=== PATIENT | male | born 1965 | race Hispanic/Latino ===

== ENCOUNTER 2019-10-16 17:15 | Observation (INO) | payer OTHER ==
[~2019-10-16] VITALS: Ht 180.3 cm; Wt 110.9 kg
--- OUTSIDE RECORDS SUMMARY | 2019-10-16 17:18 | XMS REPORT | Clinical Summary ---
Author Author [facility] Organization [facility] Address Unknown Phone Unavailable Care Team Providers Care Senior Procurement Specialist Name Role Phone Daren Dan MD PCP Allergies No Known Allergies Medications End Date Status Medication Sig Dispensed Refills Start Date Active amlodipine-benazepril Take 1 0 (LOTREL 5-10) 5-10 mg per capsule by capsule mouth daily. Active allopurinol (ZYLOPRIM) Take 100 mg 0 100 MG tablet by mouth 2 (two) times a day. Active Problems Not on file Family History Medical History Relation Name Comments Arthritis Father Hypertension Father Hypertension Mother Relation Name Status Comments Father Alive Mother Alive Social History Date Tobacco Use Types Packs/Day Years Used Former Smoker Cigarettes Smokeless Tobacco: Never Used Comments: >16 yrs Drinks/Week oz/Week Comments Alcohol Use Occassionally Yes Sex Assigned at Date Recorded Not on file Industry Job Start Date Occupation Not on file Not on file Not on file Travel End Travel History Travel Start No recent travel history available. Last Filed Vital Signs Not on file Plan of Treatment Health Maintenance Due Date Last Done Comments COLONOSCOPY SCREENING 09/25/2017 SHINGLES VACCINES (#1) 09/25/2017 INFLUENZA VACCINE 12/26/2019 Results Not on fileafter 10/15/2018 Insurance Type Payer Benefit Subscriber ID Effective Phone Address Plan / Dates Group HMO/PPO [facility] xxxxxxxxx 2017-P THCARE resent CHOICE/CHO ICE + Advance Directives For more information, please contact: [phone] Patient Carbonation Tester Explanation Type Date Recorded Advance Directives, 03/03/2018 4:17 PM Living Will and Medical Power of Director Of Physiotherapy Services
[2019-10-16] MEDS ORDERED: CEFEPIME 1GM/NS 0.9% 50 ML 50 ML IV STA (17:32)
[2019-10-16] MEDS ORDERED: SODIUM CHLORIDE 0.9% 1000ML 1,000 ML IV STA ×2 (17:32→19:47)
--- NOTE | 2019-10-16 18:35 | Diagnostic Imaging Report ---
Examination: Single AP view of the chest. COMPARISON: None. INDICATION: Tachycardia, chest pain IMPRESSION: 1. Lines and Tubes: None 2. Lungs are grossly clear. No consolidation or effusion. 3. Cardiomediastinal silhouette is normal. Pulmonary vasculature is normal. 4. No acute bony abnormalities. Signed by: Dr. Paulino Carlton M.D. on 10/16/2019 6:32 PM
[2019-10-16 18:38] LABS: BASOPHILS # (AUTO) 0.1 (0.0-0.1); BASOPHILS % 0.3 % (0.0-1.0); EOSINOPHILS % 0.1 % (0.0-6.0); HEMATOCRIT 36.9 % (38.2-49.6); HEMOGLOBIN 11.7 g/dL (14.0-18.0); LYMPHOCYTES # (AUTO) 1.1 (1.0-3.2); LYMPHOCYTES % 5.7 % (18.0-39.1); MEAN CORPUSCULAR HEMOGLOBIN 25.9 pg (28-32); MEAN CORPUSCULAR HGB CONC 31.7 g/dL (31-35); MEAN CORPUSCULAR VOLUME 81.8 fL (81-99); MONOCYTES # (AUTO) 1.8 (0.2-0.8); MONOCYTES % 9.5 % (4.4-11.3); NEUTROPHILS # (AUTO) 15.3 (2.1-6.9); NEUTROPHILS % 83.4 % (38.7-80.0); PLATELET COUNT 294 x10e3/uL (140-360); RED BLOOD COUNT 4.51 x10e6/uL (4.3-5.7); RED CELL DISTRIBUTION WIDTH 14.5 % (11.7-14.4)
[2019-10-16] MEDS ORDERED: ACETAMINOPHEN 325 MG TAB ONE (18:44)
--- NOTE | 2019-10-16 18:54 | Emergency Department Note ---
History of Present Illnes History of Present Illness Chief Complaint: Chest Pain History of Present Illness This is a 54 year old male arrived to the ED with complaints of lower l eg pain, transferred from [facility] for tachycardia- pt with a prior h/o arthrocentesis. Chief Complaint Comment PATIENT IN FROM HOME WITH COMPLAINTS OF LEFT KNEE PAIN AND SWELLING X 4 WEEKS; STATES WAS SEEN AT [facility] TODAY AND SENT OVER FOR HIGH HEART RATE; PATIENT RATES PAIN 8/10, TACHYCARDIC IN TRIAGE, APPEARS IN NO DISTRESS, AMBULATORY WITH ASSISTANCE SINCE PAIN STARTED Historian: Patient Arrival Mode: Car Onset (how long ago): month(s) Severity: mild Duration (how long): day(s) Timing of current episode: constant Progression: worsening Chronicity: new Context: recent illness, recent surgery, recent immobilization Relieving factors: none, immobilization Exacerbating factors: movement Treatments prior to arrival: none Past Medical/Family History Physician Review I have reviewed the patient's past medical and family history. Any updates have been documented here. Past Medical History Recent Fever: No Clinical Suspicion of Infectio: No New/Unexplained Change in Ment: No Past Medical History: Hypertension, Chronic Kidney Disease Other Medical History: GOUT PRE-DIABETIC Other Surgery: RIGHT ELBOW CYST REMOVAL Other Last Tetanus: UNKNOWN Review of Systems Review of Systems Constitutional: no symptoms EENTM: no symptoms Cardiovascular: no symptoms Respiratory: no symptoms Gastrointestinal: no symptoms Genitourinary: no symptoms Musculoskeletal: as per HPI, joint pain, joint swelling Neurological: no symptoms Psychological: no symptoms Endocrine: no symptoms Hematological/Lymphatic: no symptoms Review of other systems All other systems reviewed and negative. Physical Exam Related Data Allergies: Coded Allergies: No Known Allergies (Unverified , 10/16/19) Triage Vital Signs Vital Signs Date Time Temp Pulse Resp B/P (MAP) Pulse Ox O2 Delivery O2 Flow Rate FiO2 10/16/19 17:30 99.6 145 20 141/80 98 Vital signs reviewed: Yes Physical Exam CONSTITUTIONAL Constitutional: well-developed, well-nourished HENT HENT: normocephalic, atraumatic, oropharynx clear/moist, nose normal HENT L/R: left ext ear normal, right ext ear normal EYES Eyes: PERRL, conjunctivae normal NECK Neck: ROM normal PULMONARY Pulmonary: effort normal, breath sounds normal CARDIOVASCULAR Cardiovascular: regular rhythm, capillary refill normal, normal rate, tachycardia, LLE edema, RLE edema GASTROINTESTINAL Abdominal: soft, nontender, bowel sounds normal GENITOURINARY Genitourinary: exam deferred SKIN Skin: warm, dry MUSCULOSKELETAL Musculoskeletal: ROM normal, tenderness, swelling NEUROLOGICAL Neurological: alert, oriented x 3, no gross motor or sensory deficits PSYCHOLOGICAL Psychological: mood/affect normal, judgement normal Critical Care Time Subsequent provider I assumed direction of critical care for this patient from another provider of my specialty. Assessment & Plan Assessment & Plan Final Impression: (1) Severe sepsis Assessment & Plan cbc, cmp blood culture, lactic antibiotics Last Vital Signs Date Time Temp Pulse Resp B/P (MAP) Pulse Ox O2 Delivery O2 Flow Rate FiO2 10/16/19 17:30 99.6 145 20 141/80 98 Medications in the ED Sodium Chloride 1,000 ml @ 0 mls/hr Q0M STAT IV ; Start 10/16/19 at 17:32; Stop 10/16/19 at 17:35; Status DC Cefepime HCl 50 ml @ 100 mls/hr ONCE STAT IV ; Start 10/16/19 at 17:32; Stop 10/16/19 at 18:01; Status DC Physician Attestation Provider Attestation Sign out given to JYOTI Brown, October 16, 2019 18:54
[2019-10-16] MEDS ORDERED: VANCOMYCIN 1GM/NS 250 ML 250 ML ONE (18:55)
[2019-10-16 18:56] LABS: ALBUMIN 3.4 g/dL (3.5-5.0); ALBUMIN/GLOBULIN RATIO 0.7 (0.8-2.0); ANION GAP 17.8 mmol/L (8-16); CALCIUM 10.2 mg/dL (8.4-10.2); CREATININE, SERUM 3.17 mg/dL (0.72-1.25); POTASSIUM 4.8 mmol/L (3.5-5.1)
--- NOTE | 2019-10-16 19:05 | Diagnostic Imaging Report ---
Exam: Left Knee Series. History: Left knee pain and swelling for 4 weeks Comparison: None. Findings: 3 views of the left knee. There is mildly decreased bone mineralization. No acute, displaced fracture or dislocation. Moderate tricompartmental degenerative joint disease, worse at the patellofemoral compartment, with presence of marginal osteophytes and joint space narrowing. No aggressive lytic or suspicious sclerotic lesions. No abnormal soft tissue calcification or mass. Trace suprapatellar effusion. Impression: 1. No acute abnormalities. 2. Moderate tricompartmental degenerative joint disease. Trace suprapatellar effusion. Signed by: Dr. Paulino Carlton M.D. on 10/16/2019 7:02 PM
[2019-10-16] MEDS ORDERED: VANCOMYCIN 1GM/NS 250 ML 250 ML IV ONE (19:15)
[2019-10-16] MEDS ORDERED: ALLOPURINOL100 MG (19:52)
[2019-10-16] MEDS ORDERED: ULTRAM 50MG50 MG (19:52)
[2019-10-16] MEDS ORDERED: AMLODIPINE-BEN1 EAC2 (19:52)
[2019-10-16] MEDS ORDERED: ASPIRIN 81 MG CHEW TAB PO ONE (20:00)
--- OUTSIDE RECORDS SUMMARY | 2019-10-16 21:13 | XMS REPORT | Clinical Summary ---
Author Author [facility] Organization [facility] Address Unknown Phone Unavailable Care Team Providers Care Data Integration Architect Name Role Phone Daren Dan MD PCP [...] Phone Address Plan / Dates Group HMO/PPO [facility] xxxxxxxxx 2017-P THCARE resent CHOICE/CHO ICE + Advance Directives For more information, please contact: [phone] Patient Nurse Explanation Type Date Recorded Advance Directives, 03/03/2018 4:17 PM Living Will and Medical Power of Outcome Analyst
--- OUTSIDE RECORDS SUMMARY | 2019-10-16 21:13 | XMS REPORT ---
Author Author [facility] t Organization [facility] Address [address] [place] [address] Phone Unavailable Care Team Providers Care Electro Mechanical Designer Name Role Phone Sy KRUSE, Gigi Mercedes PCP Markus MELLO Attphymarkus Unavailable Problems This patient has no known problems. Allergies, Adverse Reactions, Alerts This patient has no known allergies or adverse reactions. Family History Family Member Diagnosis Comments Start Date Stop Date Source Natural father Arthritis [facility] thodist Natural father Hypertension Clayton Fernandez Natural mother Hypertension Clayton Fernandez Social History Social Habit Start Date Stop Date Quantity Comments Source History of tobacco use Cigarette Smoker Clayton Fernandez Sex Assigned At Shreyahi burciaga Rebecca Alcohol intake 2018-03-12 00:00:00 2018-03-12 00:00:00 Current drinker of alcohol (finding) Clayotn Fernandez Tobacco Comment 2018-03-04 00:00:00 2018-03-04 00:00:00 >16 yrs Clayton Fernandez Alcohol Comment 2018-03-04 00:00:00 2018-03-04 00:00:00 Occassionally Clayton Fernandez Smoking Status Start Date Stop Date Source Former smoker 2018-03-12 00:00:00 2018-03-12 00:00:00 Clayton Fernandez Medications Ordered Medication Name Filled Medication Name Start Date Stop Da te Current Medication? Ordering Clinician Indication Dosage Frequency Signature (SIG) Comments Components Source amlodipine-benazepril (LOTREL 5-10) 5-10 mg per capsule 2018-03-06 18:23:33 Yes 1{capsule} QD Take 1 capsule by mouth daily. Clayton Fernandez allopurinol (ZYLOPRIM) 100 MG tablet 2018-03-06 18:23:33 Ye s 100mg Q.5D Take 100 mg by mouth 2 (two) times a day. Clayton Fernandez Procedures This patient has no known procedures. Plan of Care Planned Activity Planned Date Details Comments Source Future Scheduled Test 2019-12-26 00:00:00 INFLUENZA VACCINE [code = INFLUENZA VACCINE] [facility] Future Scheduled Test 2017-09-25 00:00:00 COLONOSCOPY SCREEN ING [code = COLONOSCOPY SCREENING] [facility] Future Scheduled Test 2017-09-25 00:00:00 SHINGLES VACCINES (#1) [code = SHINGLES VACCINES (#1)] [facility] Results Test Description Test Time Test Comments Results Result Comments Source KNEE LEFT THREE VIEWS 2019-10-16 18:59:00 [facility] [address] [address] Patient Name: GLORIA YBARRA MR #: [id number] : 1965 Age/Sex: 54/M Req #: [id number] Adm Physician: Ordered by: JYOTI MELLO DO Report #: [id number] Location: ER Room/Bed: Procedure: [id number] DX/KNEE LEFT THREE VIEWS Exam Date: 10/16/19 Exam Time: 1814 REPORT STATUS: Signed Exam: Left Knee Series. History: Left knee pain and swelling for 4 weeks Comparison: None. Findings: 3 views of the left knee. There is mildly decreased bone mineralization. No acute, displaced fracture or dislocation. Moderate tricompartmental degenerative joint disease, worse at the patellofemoral compartment, with presence of marginal osteophytes and joint space narrowing. No aggressive lytic or suspicious sclerotic lesions. No abnormal soft tissue calcification or mass. Trace suprapatellar effusion. Impression: 1. No acute abnormalities. 2. Moderate tricompartmental degenerative joint disease. Trace suprapatellar effusion. Signed by: Dr. Olayinka Carlton M.D. on 10/16/2019 7:02 PM Dictated By: OLAYINKA CARLTON MD 01 Transcribed By: JENNIFER on 10/16/191901 COPY TO: JYOTI MELLO DO CHEST SINGLE (PORTABLE) 2019-10-16 18:31:00 [address] [address] Patient Name: GLORIA YBARRA MR #: [id number] : 1965 Age/Sex: 54/M Req #: [id number] Adm Physician: Ordered by: JYOTI MELLO DO Report #: [id number] Location: ER Room/Bed: Procedure: [id number] DX/CHEST SINGLE (PORTABLE) Exam Date: 10/16/19 Exam Time: 1814 REPORT STATUS: Signed Examination: Single AP view of the chest. COMPARISON: None. INDICATION: Tachycardia, chest pain IMPRESSION: 1. Lines and Tubes: None 2. Lungs are grossly clear. No consolidation or effusion. 3. Cardiomediastinal silhouette is normal. Pulmonary vasculature is normal. 4. No acute bony abnormalities. Signed by: Dr. Olayinka Carlton M.D. on 10/16/2019 6:32 PM Dictated By: OLAYINKA CARLTON MD 31 Transcribed By: JENNIFER on 10/16/191831 COPY TO: JYOTI MELLO DO
--- NOTE | 2019-10-16 23:14 | NUR ---
PATIENT ARRIVED VIA STRETCHER FROM ER. RECEIVED REPORT FROM JERRI MENESES NURSE. PATIENT IS A&OX4 AND AMBULATES. CALL LIGHT WITHIN REACH. PATIENT IN NO PAIN OR DISTRESS.
[2019-10-16 23:20] VITALS: BP 125/84
[2019-10-17] VITALS (7 sets, daily range): BP systolic 125–153; BP diastolic 80–88
[2019-10-17 05:55] LABS: BASOPHILS % 0.4 % (0.0-1.0); EOSINOPHILS # (AUTO) 0.1 (0.0-0.4); HEMATOCRIT 35.2 % (38.2-49.6); HEMOGLOBIN 10.7 g/dL (14.0-18.0); LYMPHOCYTES % 10.4 % (18.0-39.1); MEAN CORPUSCULAR HEMOGLOBIN 26.1 pg (28-32); MEAN CORPUSCULAR HGB CONC 30.4 g/dL (31-35); MEAN CORPUSCULAR VOLUME 85.9 fL (81-99); MONOCYTES # (AUTO) 1.4 (0.2-0.8); MONOCYTES % 14.6 % (4.4-11.3); NEUTROPHILS % 72.8 % (38.7-80.0); PLATELET COUNT 203 x10e3/uL (140-360); RED CELL DISTRIBUTION WIDTH 14.4 % (11.7-14.4)
[2019-10-17 06:35] LABS: ALBUMIN 2.8 g/dL (3.5-5.0); ALBUMIN/GLOBULIN RATIO 0.7 (0.8-2.0); ANION GAP 16.5 mmol/L (8-16); CALCIUM 9.5 mg/dL (8.4-10.2); CREATININE, SERUM 2.84 mg/dL (0.72-1.25); POTASSIUM 4.5 mmol/L (3.5-5.1)
--- NOTE | 2019-10-17 07:18 | NUR ---
GAVE BEDSIDE SHIFT REPORT TO ONCOMING NURSE. CALL LIGHT WITHIN REACH. PATIENT IN BED.
[2019-10-17] MEDS: SODIUM CHLORIDE 0.9% 1000ML 1,000 ML IV SCH ×4 (09:00→18:02)
--- NOTE | 2019-10-17 10:05 | Diagnostic Imaging Report ---
Exam: Bilateral Knee Series. History: Bilateral knee pain Comparison: Left knee 3 views 10/16/2019 Findings: Right: 3 views of the right knee. There is mildly decreased bone mineralization. Negative for acute, displaced fracture or dislocation. Moderate to marked tricompartmental degenerative joint disease, worse at the patellofemoral compartment, with marginal osteophytes and joint space narrowing. No abnormal soft tissue calcification or mass. Trace suprapatellar effusion.. Left: No interval change since films performed 10/16/2019 Impression: 1. Tricompartmental degenerative joint disease, as described. Trace bilateral suprapatellar effusions. Signed by: Dr. Paulino Carlton M.D. on 10/17/2019 10:01 AM
[2019-10-17] MEDS ORDERED: MORPHINE SULFATE INJ 4 MG/ML INJ 1ML IV PRN (12:45)
[2019-10-17] MEDS ORDERED: ACETAMINOPHEN 325 MG TAB PO PRN (12:45)
[2019-10-17] MEDS ORDERED: METHYLPREDNISOLONE SOD SUCC 40 MG/ML VIAL 1ML IV ONE (13:30)
[2019-10-17] MEDS: CEFTRIAXONE SOD 1 GM/NS 50 ML 50 ML IV SCH (13:32)
--- NOTE | 2019-10-17 15:36 | NUR ---
ORTHOPEDIC CONSULTATION 54 year old community ambulator without assistive device presents to the ED with complaints of bilateral knee pain over the past week that has progressively worsened. He had a corticosteroid injection by Dr. Reeder a month ago. Denies any fevers or chills, no numbness, paresthesias or loss of distal motor function. Patient has pain throughout his upper and lower extremity. Has a history of gout with frequent attacks. PMdHx: Bilateral Knee OA, Gout, HTN Allergies: NKDA Meds: See reconciliation FamHx: Non-contributory SurgHx: Gouty Tophi removal, Appendectomy VS T 97.8 HR 74 RR 20 BP 153/88 O2 99% Gen: AAOx3, NAD Bilateral Knees: Genu valgus, crepitus with ROM ROM 10-80 with crepitus, no pain with PROM Small effusion Negative Varus/Valgus Negative Anterior & Posterior Drawer Xrays: Severe Bilateral Total Knee Osteoarthritisf WBC 9.59 Hgb 10.7 Hct 35.2 ESR 97 Glucose 387 Blood Cx: Pending 54 year old Male with Bilateral Knee Osteoarthritis Low likelihood of septic arthritis Discussed care with patient and expressed to him that he could have his knee aspirated and even provided a corticosteroid injection. He plans to have a total knee arthroplasty performed in the next few months and would not like an aspiration or injection NSAIDS DVT Prophylaxis PT - WBAT If patient's condition or symptoms worsen, please contact PRN No acute orthopedic intervention required at this time. May follow up as an outpatient. Molly Carmichael DO [facility]
[2019-10-17] MEDS: METOPROLOL TARTRATE 25 MG TAB PO SCH (17:06)
--- NOTE | 2019-10-17 17:11 | NUR ---
RT notified of EKG Order
--- NOTE | 2019-10-17 18:43 | NUR ---
dictation [id number]
--- NOTE | 2019-10-17 19:02 | NUR ---
Received the patient in report .stable condition.
[2019-10-17 20:07] LABS: PROTHROMBIN TIME 13.8 seconds (11.9-14.5)
[2019-10-17] MEDS: HEPARIN SOD (PORCINE) 5,000 UNIT/ML VIAL SC SCH (20:36)
--- NOTE | 2019-10-17 20:38 | NUR ---
Assessment done.no resp.distress.nellie.knee pain voiced 07/06.denied pain medicine.ambulates with walker.voided.iv fluid running to left ej.bed locked and in lowest position.phone and call light within reach.instructed to call for assistance as needed.blood marvin and sent to the lab for ptt.tolerates well.
--- NOTE | 2019-10-17 21:19 | History and Physical ---
PRIMARY CARE PHYSICIAN: Dr. Escamilla at [facility] [place]. CHIEF COMPLAINT: Joint swelling, pain, and fever x3 days. HISTORY OF PRESENT ILLNESS: This is a 54-year-old male, who presented to the ER with complaints of bilateral lower extremity joint swelling and pain, unable to walk, worsening since the past three days. He denies any trauma, nausea, vomiting, chest pain, shortness of breath, cough, or dizziness. He reports has a history of arthritis and has been dealing with left knee pain, which he had planned for left knee replacement after December 24, 2019. He reports received a shot of cortisol at his orthopedics doctor on September 24, 2019, but 3 days ago, he started having pain and swelling in the right knee, hands, and joints in the upper and lower extremities, so went to see his PCP, but was sent to the ER for further workup. Upon arrival to the ER, he was noted to have a temperature of 100.3. His white count was elevated. Heart rate tachycardic in the 120s. He was given fluids and vancomycin, which seemed to improve his symptoms. PAST MEDICAL HISTORY: 1. Hypertension. 2. Arthritis of the knees. 3. Gout. 4. CKD. PAST SURGICAL HISTORY: Reports that he had cysts removed from his back. FAMILY MEDICAL HISTORY: He reports his father has gout and mother has high cholesterol. SOCIAL HISTORY: He denies any tobacco, alcohol, or illicit drug use. ALLERGIES: NO KNOWN DRUG ALLERGIES. REVIEW OF SYSTEMS: GENERAL: Fever and fatigue. LUNGS: No shortness of breath or cough. CARDIOVASCULAR: No chest pain, tachycardia. GI: No nausea or vomiting. NEURO: No dizziness. MUSCULOSKELETAL: Multiple joint pain. SKIN: No rash. PHYSICAL EXAMINATION: VITAL SIGNS: Temperature 97.8, pulse is 109, respirations 18, blood pressure 153/88, pulse ox is 100% on room air. GENERAL: No acute distress. SKIN: Dry and intact. NECK: Supple. CARDIOVASCULAR: Tachycardic, sinus rhythm. LUNGS: Clear to auscultation. GI: Soft and nontender. NEUROLOGIC: Alert, awake, and oriented x3. MUSCULOSKELETAL: Decreased movement due to pain, swelling has improved, but warm to touch. PSYCH: Calm. LABORATORY DATA: WBC 18.37, now 9.57, hemoglobin 11.7, now 10.7, hematocrit 36.9, ESR 97. Sodium 136, potassium 4.5, carbon dioxide 14, BUN 43 and creatinine was 3.17, now 2.84, estimated GFR is 24, blood glucose 387, uric acid 7.6, AST 16, ALT 26, CK 148, troponin 0.002. CRP pending. Blood cultures pending. IMAGING: Chest x-ray lungs are grossly clear. No consolidation or effusion. Left knee x-ray, no acute abnormalities. Moderate tricompartment degenerative joint disease with trace bilateral suprapatellar effusion. IMPRESSION: 1. Sepsis on admission. Of unknown cause. Has multiple joint swelling and pain upon admission. Cultures sent, started on IV antibiotics. White count and heart rate improving. We will continue with IV fluid hydration and antibiotics. 2. Bilateral knee swelling and pain. X-rays show degenerative changes. Was given steroids and pain management as needed likely due to his history of history of arthritis. Orthopedics was consulted. 3. History of gout. Was on allopurinol. 4. Hypertension. We will start him on metoprolol p.o. b.i.d. 5. Chronic kidney disease. Unknown stage. Likely due to chronic NSAID use. Continue IV fluids and repeat blood work shows creatinine trending down to 2.84. 6. Elevated blood sugar. He denies diabetes, but we will check hemoglobin A1c and treat as needed. 7. Deep venous thrombosis prophylaxis. We will start on heparin subcu. PLAN: To continue with steroids and IV antibiotics while we wait for the blood cultures. Continue supportive therapy, Infectious Disease consulted for further evaluation. Dictated by LIBERTY Mcintosh Inna Urban MD MY/MODL /[id number] Pt seen and examined. Agree with the findings and plan as documented by LIBERTY Manzano. ANNEL
[2019-10-18] VITALS: BP 149/76
[2019-10-18] MEDS: SODIUM CHLORIDE 0.9% 1000ML 1,000 ML IV SCH ×2 (02:26→11:14)
[2019-10-18 04:00] VITALS: BP 144/82
[2019-10-18 06:12] LABS: BASOPHILS % 0.1 % (0.0-1.0); HEMATOCRIT 32.2 % (38.2-49.6); LYMPHOCYTES # (AUTO) 0.5 (1.0-3.2); LYMPHOCYTES % 4.9 % (18.0-39.1); MEAN CORPUSCULAR HEMOGLOBIN 25.9 pg (28-32); MEAN CORPUSCULAR HGB CONC 31.1 g/dL (31-35); MEAN CORPUSCULAR VOLUME 83.4 fL (81-99); MONOCYTES # (AUTO) 0.3 (0.2-0.8); NEUTROPHILS # (AUTO) 8.7 (2.1-6.9); NEUTROPHILS % 91.6 % (38.7-80.0); PLATELET COUNT 238 x10e3/uL (140-360); RED BLOOD COUNT 3.86 x10e6/uL (4.3-5.7); RED CELL DISTRIBUTION WIDTH 14.3 % (11.7-14.4)
--- NOTE | 2019-10-18 06:15 | NUR ---
SPOKE TO Ms HILL REGARDING CONSULTATION WITH .
--- NOTE | 2019-10-18 07:00 | NUR ---
BED SIDE SHIFT REPORT GIVEN TO ONCOMING RN.STABLE CONDITION.
[2019-10-18 07:46] VITALS: BP 144/82
[2019-10-18 08:08] VITALS: BP 145/81
[2019-10-18] MEDS ORDERED: PREDNISONE 20 MG TAB PO SCH (09:00)
[2019-10-18] MEDS: HEPARIN SOD (PORCINE) 5,000 UNIT/ML VIAL SC SCH (09:00)
[2019-10-18] MEDS: METOPROLOL TARTRATE 25 MG TAB PO SCH (09:16)
[2019-10-18 10:02] LABS: ANION GAP 15.4 mmol/L (8-16); CALCIUM 9.9 mg/dL (8.4-10.2); CREATININE, SERUM 2.24 mg/dL (0.72-1.25); POTASSIUM 5.4 mmol/L (3.5-5.1)
[2019-10-18 11:46] VITALS: BP 148/85
[2019-10-18] MEDS: CEFTRIAXONE SOD 1 GM/NS 50 ML 50 ML IV SCH (12:30)
[2019-10-18] MEDS ORDERED: PREDNISONE10 MG PO (14:29)
[2019-10-18] MEDS ORDERED: METOPROLOL TART50 MG PO (15:01)
--- NOTE | 2019-10-18 15:02 | Consultation ---
DATE OF CONSULTATION: REASON FOR CONSULTATION: Leukocytosis, arthritis, concerned about infection, and recommendation of antibiotic. HISTORY OF PRESENT ILLNESS: This patient is a very pleasant 54-year-old male, who comes in with fever and chills, and joint swelling. He tells me he has been sick for a week or so. He went to see his physician. There was swelling on his left knee, where he had pain and he got steroid injection, it was probably a month ago. After further discussion with him, he was doing well, but the day of admission, he was very weak. He was not able to move. He was having fever. He was having pain in all his joints, both knees and both ankles, came here. His white count was elevated. He is being admitted. He was started on steroid as well as antibiotics. He was seen by Orthopedic yesterday. I was asked to see him today. He is currently doing much better. He is telling me he does have history of gout. At the present time, the patient is doing much better. REVIEW OF SYSTEMS: HEENT: Negative. PULMONARY: Negative. CARDIAC: Negative. : Negative. GI: Negative. MUSCULOSKELETAL: Except for the pain in the joint, he denies any fever or chills at present time. He is able to move all his extremities. SKIN: There are no rashes. PAST MEDICAL HISTORY: Obesity, hypertension, arthritis, gout, and CKD. PAST SURGICAL HISTORY: Cyst removal from the back. ALLERGIES: NKA. SOCIAL HISTORY: There is no smoking, drug abuse, or alcohol abuse. FAMILY HISTORY: Hypertension. LABORATORY DATA: Reviewed. Blood cultures negative. White count when he first came was 18.37, came down to 9.4, hemoglobin 10, and hematocrit 32. His GREY is still pending. His sodium 136, potassium 5.4, and creatinine of 2.24. PHYSICAL EXAMINATION: GENERAL: Currently alert, oriented. VITAL SIGNS: Stable, currently afebrile. HEENT: Not icteric. NECK: Supple. CHEST: Clear. COR: S1, S2. ABDOMEN: Soft. Bowel sounds present. No tenderness. EXTREMITIES: No edema. Joint, there is no effusion. IMPRESSION: 1. Acute inflammatory process, gout versus other. Can discontinue antibiotic, can be discharged home with prednisone 50 mg p.o. daily for 3 days, then 10 mg p.o. daily for 3 days, then 5 mg p.o. daily for 10 days. Follow up as an outpatient. Discussed with the patient to see Rheumatology as an outpatient. He can come and see me in few days. 2. Chronic kidney disease. 3. Hypertension. We will follow. Discussed with Internal Medicine. MD MORRIS Pedraza/DELMAR /[id number]
--- NOTE | 2019-10-18 15:41 | NUR ---
Discharge instructions and prescriptions were discussed with the patient. He verbalized understanding. IV to the left EJ was removed with tip intact.
[2019-10-18 15:52] VITALS: BP 135/79
--- NOTE | 2019-10-18 21:53 | Discharge Summary ---
PRIMARY CARE PHYSICIAN: Dr. Escamilla at [facility] [place]. FINAL DISCHARGE DIAGNOSES: 1. Systemic inflammatory response syndrome on admission due to inflammatory process. 2. Bilateral knee swelling and pain. 3. History of gout. 4. Hypertension. 5. Chronic kidney disease. CONSULTANTS: 1. Dr. Blue with Orthopedics. 2. Dr. Zazueta with Infectious Disease. PROCEDURES: None. HISTORY: Per HPI. HOSPITAL COURSE: This is a 54-year-old male, who was admitted to the ER with complaints of fever, multiple joint swelling and pain. Orthopedics was consulted and started on IV antibiotics and steroids for inflammation. Blood culture was negative. He was evaluated by Orthopedics. X-ray of the knee showed no acute abnormalities with moderate tricompartment degenerative joint disease with trace suprapatellar effusion. Chest x-ray unremarkable. No further workup needed from Orthopedic standpoint. The patient seems to be responding well to steroids. Infectious Disease recommends continuation of that steroids and to follow up with a bed manager for further evaluation as he has history of arthritis and resume with his gout and NSAID regimen. His blood pressure is well controlled, his medication changed to metoprolol 50 mg b.i.d. Today, he reports swelling has resolved and has full function of his lower extremities. He will be discharged to follow up with his PCP and bed manager in 1 to 2 weeks. PHYSICAL EXAMINATION: VITAL SIGNS: Temperature 97.6, pulse is 88, respirations 18, blood pressure 135/79, pulse ox is 100% on room air. GENERAL: No acute distress. SKIN: Dry. CARDIOVASCULAR: Regular rate and rhythm. LUNGS: Clear to auscultation. GI: Soft and nontender. NEUROLOGIC: Alert, awake, and oriented x3. MUSCULOSKELETAL: Moves all extremities with no pain or swelling. PSYCH: Calm. CONDITION AT DISCHARGE: Improved and stable. DISCHARGE MEDICATIONS: Please see medication reconciliation list. FOLLOWUP: Follow up with PCP and bed manager in 1 to 2 weeks. TIME SPENT: Total time of discharge is 35 minutes. Dictated by LIBERTY Mcintosh Yiching Bala Urban MD MY/MODL /[id number] cc: Dr. Escamilla [facility] Pt seen and examined. Agree with the findings and plan as documented by LIBERTY Manzano. ANNEL
== END 2019-10-18 17:07 | disposition home or self-care (01) ==
LOC: ER 17:15 → INTOOBSV 19:51 → ERHOLD 19:51 → MED/SURG2 23:28
PROVIDERS: ADMIT Internal Medicine; ATTEND Internal Medicine
DX: M25.462 Effusion, left knee (principal); M10.9 Gout, unspecified; M17.0 Bilateral primary osteoarthritis of knee; A41.9 Sepsis, unspecified organism; N18.9 Chronic kidney disease, unspecified; Z79.1 Long term (current) use of non-steroidal anti-inflammatories (NSAID); R65.10 Systemic inflammatory response syndrome (SIRS) of non-infectious origin without acute organ dysfunction; M25.461 Effusion, right knee; I10 Essential (primary) hypertension
CPT/HCPCS: 36415 ×3; 71045; 73562 ×2; 80048; 80053 ×2; 82550; 82553; 82948 ×2; 83036; 83605; 84484; 84550; 85025 ×3; 85610; 85651; 85730; 86039; 86140; 87040; 87635; 93005; 99284; G0378 ×3; J0692; J0696 ×2; J1644 ×2; J2920; J3370; J7030 ×3; J7512